=== PATIENT | male | born 1955 | race Caucasian/White ===

== ENCOUNTER 2018-08-16 18:07 | Inpatient (IN) | payer MEDICAID, OTHER ==
[2018-08-16] MEDS ORDERED: NITROGLYCERIN 50 MG/D5W (PMX) 250 ML (18:15)
[2018-08-16 18:25] LABS: ADD MAN DIFF? NO
[2018-08-16] MEDS: ENALAPRILAT 1.25 MG INJ IV (18:27)
[2018-08-16] MEDS: FUROSEMIDE 40 MG INJ IV (18:27)
[2018-08-16 18:28] LABS: WHITE BLOOD COUNT 10.2 10^3/ul (4.8-10.8)
[2018-08-16 18:28] LABS: BASOPHIL # 0.1 10^3/ul (0.0-0.1); EOSINOPHILS # 0.6 10^3/ul (0.0-0.5); EOSINOPHILS % 5.5 % (0.0-7.0); HEMATOCRIT 41.5 % (42.0-52.0); HEMOGLOBIN 13.1 g/dl (14.0-18.0); LYMPHOCYTES # 4.4 10^3/ul (0.8-2.9); LYMPHOCYTES % 42.9 % (15.0-51.0); MEAN CORPUSCULAR HGB CONC 31.6 g/dl (32.0-37.0); MEAN CORPUSCULAR VOLUME 95.2 fl (82.0-101.0); MEAN PLATELET VOLUME 11.5 fl (7.4-10.4); MONOCYTE # 0.6 10^3/ul (0.3-0.9); MONOCYTES % 6.2 % (0.0-11.0); NEUTROPHIL # 4.5 10^3/ul (1.6-7.5); NEUTROPHILS % 44.2 % (39.0-77.0); PLATELET COUNT 292 10^3/UL (140-415); RED BLOOD COUNT 4.36 10^6/ul (4.70-6.10); RED CELL DISTRIBUTION WIDTH 14.3 % (11.5-14.5)
[2018-08-16] MEDS: NITROGLYCERIN 50 MG/D5W (PMX) 250 ML IV ×2 (18:28→23:48)
[2018-08-16 18:50] LABS: ALANINE AMINOTRANSFERASE 18 IU/L (13-69); ALBUMIN 3.1 g/dl (3.3-4.9); ALBUMIN/GLOBULIN RATIO 1.06; ALKALINE PHOSPHATASE 102 IU/L (42-121); ANION GAP 12 (5-13); ASPARTATE AMINO TRANSFERASE 36 IU/L (15-46); BILIRUBIN,INDIRECT 0.1 mg/dl (0-1.1); BILIRUBIN,TOTAL 0.1 mg/dl (0.2-1.3); BLOOD UREA NITROGEN 30 mg/dl (7-20); CALCIUM 8.1 mg/dl (8.4-10.2); CARBON DIOXIDE 19 mmol/L (21-31); CHLORIDE 107 mmol/L (97-110); CREATININE 3.71 mg/dl (0.61-1.24); Estimated GFR 17 mL/min (>60); GLUCOSE 275 mg/dl (70-220); LIPASE 290 U/L (23-300); POTASSIUM 3.4 mmol/L (3.5-5.1); SODIUM 138 mmol/L (135-144)
[2018-08-16] MEDS: ASPIRIN 81 MG TAB PO (18:50)
[2018-08-16 18:54] LABS: INR 0.89; PROTIME 12.1 Sec (11.9-14.9); PT RATIO 0.9
[2018-08-16 18:56] LABS: PARTIAL THROMBOPLASTIN TIME 28.6 Sec (23.0-35.0)
[2018-08-16 19:01] LABS: TROPONIN-I 0.066 ng/ml (0.000-0.120)
[2018-08-16 19:10] LABS: AADO2 Arterial 343.8 mmHg (7.0-24.0); Allen Test ACCEPTAB; Arterial Base Excess -7.5 mmol/L (-3.0-3); Arterial Blood Gas Oxygen Sat 99.5 mmHG (95.0-98.0); Arterial COHb 0.3 % (0.0-3.0); Arterial Fraction of Oxyhgb 98.8 % (93.0-99.0); Arterial HCO3 18.9 mmol/L (22.0-26.0); Arterial MetHb 0.4 % (0.0-1.5); Arterial pCO2 41.3 mmhg (35-45); Blood Gas IEPAP 20/8; Blood Gas PS 12; MODE MASK - BIPAP; Site Right Radial
[2018-08-16] MEDS ORDERED: ALBUTEROL HFA 8 GM INHALER INH (21:30)
[2018-08-16] MEDS ORDERED: ONDANSETRON 4 MG INJ IV (21:30)
[2018-08-16] MEDS ORDERED: IPRATROPIUM (HFA) 12.9 GM INHALER INH (21:30)
[2018-08-16] MEDS ORDERED: DEXTROSE 50% 50 ML SYRINGE IV ×2 (22:00)
[2018-08-16] MEDS ORDERED: GLUCOSE GEL 15 GRAM TUBE BUCCAL (22:00)
[2018-08-16] MEDS ORDERED: GLUCOSE GEL 15 GRAM TUBE PO ×2 (22:00)
[2018-08-16] MEDS ORDERED: GLUCAGON 1 MG INJ IM (22:00)
[2018-08-16 22:47] LABS: Allen Test ACCEPTAB; Arterial Base Excess -6.2 mmol/L (-3.0-3); Arterial Blood Gas Oxygen Sat 96.7 mmHG (95.0-98.0); Arterial COHb 0.3 % (0.0-3.0); Arterial Fraction of Oxyhgb 96.2 % (93.0-99.0); Arterial HCO3 19.1 mmol/L (22.0-26.0); Arterial MetHb 0.2 % (0.0-1.5); Arterial pCO2 37.3 mmhg (35-45); MODE MASK - SIMPLE; Site Right Radial
[2018-08-17] MEDS: INSULIN ASPART [NOVOLOG] 3 ML PEN SC ×6 (01:21→21:00)
[2018-08-17] MEDS ORDERED: ACCU-CHEK XX (02:00)
[2018-08-17] MEDS: NITROGLYCERIN 50 MG/D5W (PMX) 250 ML IV ×3 (06:05→20:16)
[2018-08-17 06:37] LABS: ANION GAP 9 (5-13); BLOOD UREA NITROGEN 34 mg/dl (7-20); CALCIUM 8.1 mg/dl (8.4-10.2); CARBON DIOXIDE 22 mmol/L (21-31); CHLORIDE 112 mmol/L (97-110); CREATININE 4.23 mg/dl (0.61-1.24); Estimated GFR 14 mL/min (>60); GLUCOSE 123 mg/dl (70-220); MAGNESIUM 2.3 mg/dl (1.7-2.5); SODIUM 143 mmol/L (135-144)
[2018-08-17] MEDS: FAMOTIDINE 20 MG INJ IV (08:26)
[2018-08-17] MEDS: ASPIRIN (EC) 81 MG TAB PO (10:46)
[2018-08-17] MEDS: CLOPIDOGREL 75 MG TAB PO (10:46)
[2018-08-17] MEDS: ISOSORBIDE MONONITRATE(SR)60 MG TAB PO (10:53)
[2018-08-17] MEDS: HEPARIN 5,000 UNIT/1 ML VIAL SC ×2 (10:56→21:59)
[2018-08-17] MEDS ORDERED: LEVOFLOXACIN 750 MG TABLET NGT (12:00)
[2018-08-17] MEDS: LEVOFLOXACIN 500 MG TAB PO (13:58)
[2018-08-17] MEDS: LACTOBACILLUS RHAMNOSUS CAP PO ×2 (14:03→21:47)
[2018-08-17 14:28] LABS: HEMOGLOBIN A1C 6.3 % (0-5.9)
[2018-08-17 16:29] LABS: CREATININE,URINE RANDOM 182.96 mg/dl (20-370)
[2018-08-17 16:29] LABS: SODIUM,URINE RANDOM 23 mmol/L (30-90)
[2018-08-17] MEDS: ATORVASTATIN 80 MG TAB PO (21:48)
[2018-08-18] MEDS: NITROGLYCERIN 50 MG/D5W (PMX) 250 ML IV ×6 (00:36→22:57)
[2018-08-18 05:26] LABS: ADD MAN DIFF? NO
[2018-08-18 05:29] LABS: WHITE BLOOD COUNT 6.2 10^3/ul (4.8-10.8)
[2018-08-18 05:29] LABS: BASOPHIL # 0.1 10^3/ul (0.0-0.1); BASOPHILS % 1.1 % (0.0-2.0); EOSINOPHILS # 0.4 10^3/ul (0.0-0.5); HEMATOCRIT 29.2 % (42.0-52.0); HEMOGLOBIN 9.6 g/dl (14.0-18.0); LYMPHOCYTES # 1.2 10^3/ul (0.8-2.9); LYMPHOCYTES % 18.9 % (15.0-51.0); MEAN CORPUSCULAR HEMOGLOBIN 30.5 pg (29.0-33.0); MEAN CORPUSCULAR HGB CONC 32.9 g/dl (32.0-37.0); MEAN CORPUSCULAR VOLUME 92.7 fl (82.0-101.0); MEAN PLATELET VOLUME 11.9 fl (7.4-10.4); MONOCYTE # 0.7 10^3/ul (0.3-0.9); MONOCYTES % 10.5 % (0.0-11.0); NEUTROPHIL # 3.9 10^3/ul (1.6-7.5); NEUTROPHILS % 63.3 % (39.0-77.0); PLATELET COUNT 211 10^3/UL (140-415); RED BLOOD COUNT 3.15 10^6/ul (4.70-6.10); RED CELL DISTRIBUTION WIDTH 14.5 % (11.5-14.5)
[2018-08-18 05:52] LABS: ANION GAP 11 (5-13); BLOOD UREA NITROGEN 33 mg/dl (7-20); CARBON DIOXIDE 21 mmol/L (21-31); CHLORIDE 104 mmol/L (97-110); CHOL/HDL RATIO 4.9 RATIO; CHOLESTEROL 206 mg/dl (100-200); CREATININE 4.52 mg/dl (0.61-1.24); Estimated GFR 13 mL/min (>60); GLUCOSE 137 mg/dl (70-220); HDL CHOLESTEROL 42 mg/dl (30-78); LDL CHOLESTEROL,CALCULATED 133 mg/dl; MAGNESIUM 2.1 mg/dl (1.7-2.5); PHOSPHORUS 4.4 mg/dl (2.5-4.9); POTASSIUM 3.5 mmol/L (3.5-5.1); SODIUM 136 mmol/L (135-144); TRIGLYCERIDES 155 mg/dl (0-149)
[2018-08-18] MEDS: CLOPIDOGREL 75 MG TAB PO (09:15)
[2018-08-18] MEDS: FAMOTIDINE 20 MG TAB PO (09:16)
[2018-08-18] MEDS: ASPIRIN (EC) 81 MG TAB PO (09:16)
[2018-08-18] MEDS: ISOSORBIDE MONONITRATE(SR)60 MG TAB PO (09:16)
[2018-08-18] MEDS: LACTOBACILLUS RHAMNOSUS CAP PO ×2 (09:16→21:28)
[2018-08-18] MEDS: INSULIN ASPART [NOVOLOG] 3 ML PEN SC ×4 (09:17→21:00)
[2018-08-18] MEDS: HEPARIN 5,000 UNIT/1 ML VIAL SC ×2 (09:18→21:33)
[2018-08-18] MEDS: hydrALAzine 20 MG INJ IV ×2 (11:48→20:05)
[2018-08-18] MEDS: BUMETANIDE 1 MG INJ IV ×2 (15:08→18:02)
[2018-08-18 15:57] LABS: COLLECTION PERIOD 24 hrs; CREATININE CLEARANCE 17.7 mls/min (84.0-162.0); SCRET 4.52 mg/dl (0.61-1.24); VOLUME 750 ml/24hrs
[2018-08-18] MEDS: AMLODIPINE 5 MG TAB PO (17:00)
[2018-08-18] MEDS: ATORVASTATIN 80 MG TAB PO (21:28)
[2018-08-19] MEDS: NITROGLYCERIN 50 MG/D5W (PMX) 250 ML IV ×3 (04:07→17:12)
[2018-08-19 05:24] LABS: ADD MAN DIFF? NO
[2018-08-19 05:30] LABS: BASOPHIL # 0.1 10^3/ul (0.0-0.1); BASOPHILS % 0.9 % (0.0-2.0); EOSINOPHILS # 0.4 10^3/ul (0.0-0.5); EOSINOPHILS % 6.8 % (0.0-7.0); HEMOGLOBIN 9.5 g/dl (14.0-18.0); LYMPHOCYTES # 1.1 10^3/ul (0.8-2.9); LYMPHOCYTES % 18.7 % (15.0-51.0); MEAN CORPUSCULAR HEMOGLOBIN 30.9 pg (29.0-33.0); MEAN CORPUSCULAR HGB CONC 32.8 g/dl (32.0-37.0); MEAN CORPUSCULAR VOLUME 94.5 fl (82.0-101.0); MONOCYTE # 0.6 10^3/ul (0.3-0.9); MONOCYTES % 10.6 % (0.0-11.0); NEUTROPHIL # 3.6 10^3/ul (1.6-7.5); NEUTROPHILS % 62.8 % (39.0-77.0); PLATELET COUNT 198 10^3/UL (140-415); RED BLOOD COUNT 3.07 10^6/ul (4.70-6.10); RED CELL DISTRIBUTION WIDTH 14.3 % (11.5-14.5)
[2018-08-19 05:30] LABS: WHITE BLOOD COUNT 5.8 10^3/ul (4.8-10.8)
[2018-08-19 06:01] LABS: ANION GAP 8 (5-13); BLOOD UREA NITROGEN 38 mg/dl (7-20); CALCIUM 8.1 mg/dl (8.4-10.2); CARBON DIOXIDE 20 mmol/L (21-31); CHLORIDE 106 mmol/L (97-110); CREATININE 4.71 mg/dl (0.61-1.24); Estimated GFR 13 mL/min (>60); GLUCOSE 145 mg/dl (70-220); POTASSIUM 3.5 mmol/L (3.5-5.1); SODIUM 134 mmol/L (135-144)
[2018-08-19] MEDS: LEVOFLOXACIN 500 MG TAB PO (06:19)
[2018-08-19] MEDS: BUMETANIDE 1 MG INJ IV (06:20)
[2018-08-19] MEDS: INSULIN ASPART [NOVOLOG] 3 ML PEN SC ×4 (07:35→21:00)
[2018-08-19] MEDS: ASPIRIN (EC) 81 MG TAB PO (08:19)
[2018-08-19] MEDS: FAMOTIDINE 20 MG TAB PO (08:19)
[2018-08-19] MEDS: CLOPIDOGREL 75 MG TAB PO (08:19)
[2018-08-19] MEDS: LACTOBACILLUS RHAMNOSUS CAP PO ×2 (08:19→21:43)
[2018-08-19] MEDS: ISOSORBIDE MONONITRATE(SR)60 MG TAB PO ×2 (08:20→21:45)
[2018-08-19] MEDS: AMLODIPINE 5 MG TAB PO ×2 (08:21→21:43)
[2018-08-19] MEDS: HEPARIN 5,000 UNIT/1 ML VIAL SC ×2 (08:27→21:47)
[2018-08-19 09:40] LABS: ADD UMIC YES; UR ASCORBIC ACID NEGATIVE (NEGATIVE); UR BILIRUBIN (Dip) NEGATIVE (NEGATIVE); UR BLOOD (Dip) NEGATIVE (NEGATIVE); UR CLARITY SLIGHTLY CLOUDY (CLEAR); UR COLOR YELLOW (YELLOW); UR GLUCOSE (Dip) 2+ mg/dL (NEGATIVE); UR KETONES (Dip) NEGATIVE (NEGATIVE); UR LEUKOCYTE ESTERASE (Dip) NEGATIVE Leu/ul (NEGATIVE); UR NITRITE (Dip) NEGATIVE (NEGATIVE); UR RBC 22 /HPF (0-5); UR SPECIFIC GRAVITY (Dip) 1.012 (1.003-1.030); UR TOTAL PROTEIN (Dip) 3+ mg/dl (NEGATIVE); UR UROBILINOGEN (Dip) NEGATIVE (NEGATIVE); UR WBC 6 /HPF (0-5)
[2018-08-19] MEDS: hydrALAzine 20 MG INJ IV (16:05)
[2018-08-19] MEDS: ATORVASTATIN 80 MG TAB PO (21:44)
[2018-08-20] MEDS: NITROGLYCERIN 50 MG/D5W (PMX) 250 ML IV ×2 (00:39→06:01)
[2018-08-20 05:08] LABS: ADD MAN DIFF? NO
[2018-08-20 05:14] LABS: WHITE BLOOD COUNT 5.7 10^3/ul (4.8-10.8)
[2018-08-20 05:14] LABS: BASOPHIL # 0.1 10^3/ul (0.0-0.1); BASOPHILS % 1.2 % (0.0-2.0); EOSINOPHILS # 0.4 10^3/ul (0.0-0.5); EOSINOPHILS % 6.5 % (0.0-7.0); HEMATOCRIT 29.2 % (42.0-52.0); HEMOGLOBIN 9.5 g/dl (14.0-18.0); LYMPHOCYTES # 1.1 10^3/ul (0.8-2.9); LYMPHOCYTES % 19.6 % (15.0-51.0); MEAN CORPUSCULAR HEMOGLOBIN 30.2 pg (29.0-33.0); MEAN CORPUSCULAR HGB CONC 32.5 g/dl (32.0-37.0); MEAN CORPUSCULAR VOLUME 92.7 fl (82.0-101.0); MEAN PLATELET VOLUME 12.1 fl (7.4-10.4); MONOCYTE # 0.6 10^3/ul (0.3-0.9); MONOCYTES % 11.3 % (0.0-11.0); NEUTROPHIL # 3.5 10^3/ul (1.6-7.5); NEUTROPHILS % 61.2 % (39.0-77.0); PLATELET COUNT 195 10^3/UL (140-415); RED BLOOD COUNT 3.15 10^6/ul (4.70-6.10); RED CELL DISTRIBUTION WIDTH 14.1 % (11.5-14.5)
[2018-08-20 05:32] LABS: ANION GAP 7 (5-13); BLOOD UREA NITROGEN 41 mg/dl (7-20); CALCIUM 8.1 mg/dl (8.4-10.2); CARBON DIOXIDE 20 mmol/L (21-31); CHLORIDE 106 mmol/L (97-110); CREATININE 4.76 mg/dl (0.61-1.24); Estimated GFR 13 mL/min (>60); GLUCOSE 131 mg/dl (70-220); POTASSIUM 3.5 mmol/L (3.5-5.1); SODIUM 133 mmol/L (135-144)
[2018-08-20] MEDS: FAMOTIDINE 20 MG TAB PO (09:23)
[2018-08-20] MEDS: ASPIRIN (EC) 81 MG TAB PO (09:23)
[2018-08-20] MEDS: CLOPIDOGREL 75 MG TAB PO (09:24)
[2018-08-20] MEDS: AMLODIPINE 5 MG TAB PO ×2 (09:24→21:54)
[2018-08-20] MEDS: LACTOBACILLUS RHAMNOSUS CAP PO ×2 (09:24→21:56)
[2018-08-20] MEDS: HEPARIN 5,000 UNIT/1 ML VIAL SC ×2 (09:25→21:57)
[2018-08-20] MEDS: INSULIN ASPART [NOVOLOG] 3 ML PEN SC ×4 (09:33→21:00)
[2018-08-20] MEDS: ISOSORBIDE MONONITRATE(SR)60 MG TAB PO ×2 (09:40→21:52)
[2018-08-20] MEDS ORDERED: BUMETANIDE 1 MG INJ IV (10:00)
[2018-08-20] MEDS: BUMETANIDE 2 MG in DEXTROSE 5% 17 ML IV ×2 (11:13→17:47)
[2018-08-20] MEDS: hydrALAzine 20 MG INJ IV ×2 (11:52→18:11)
[2018-08-20] MEDS: IOHEXOL 14.3 MG(I)/ML (ADULT) BTL PO (15:30)
[2018-08-20 16:34] LABS: CREATINE KINASE 74 IU/L (23-200)
[2018-08-20 17:52] LABS: COMPLEMENT C3 103 mg/dl (88-165); COMPLEMENT C4 30 mg/dl (14-44)
[2018-08-20] MEDS ORDERED: BUMETANIDE 2 MG in DEXTROSE 5% 17 ML IV (18:00)
[2018-08-20 20:52] LABS: PTH CALCIUM 7.7 mg/dL (8.6-10.3)
[2018-08-20] MEDS: ATORVASTATIN 80 MG TAB PO (21:53)
[2018-08-21 05:03] LABS: ADD MAN DIFF? NO
[2018-08-21 05:14] LABS: WHITE BLOOD COUNT 5.7 10^3/ul (4.8-10.8)
[2018-08-21 05:14] LABS: BASOPHIL # 0.1 10^3/ul (0.0-0.1); BASOPHILS % 0.9 % (0.0-2.0); EOSINOPHILS # 0.4 10^3/ul (0.0-0.5); HEMATOCRIT 31.9 % (42.0-52.0); HEMOGLOBIN 10.4 g/dl (14.0-18.0); LYMPHOCYTES # 1.1 10^3/ul (0.8-2.9); MEAN CORPUSCULAR HEMOGLOBIN 30.4 pg (29.0-33.0); MEAN CORPUSCULAR HGB CONC 32.6 g/dl (32.0-37.0); MEAN CORPUSCULAR VOLUME 93.3 fl (82.0-101.0); MONOCYTE # 0.7 10^3/ul (0.3-0.9); MONOCYTES % 11.4 % (0.0-11.0); NEUTROPHIL # 3.5 10^3/ul (1.6-7.5); NEUTROPHILS % 61.3 % (39.0-77.0); PLATELET COUNT 212 10^3/UL (140-415); RED BLOOD COUNT 3.42 10^6/ul (4.70-6.10)
[2018-08-21 05:27] LABS: ANION GAP 5 (5-13); BLOOD UREA NITROGEN 44 mg/dl (7-20); CALCIUM 8.3 mg/dl (8.4-10.2); CARBON DIOXIDE 22 mmol/L (21-31); CHLORIDE 107 mmol/L (97-110); Estimated GFR 12 mL/min (>60); GLUCOSE 122 mg/dl (70-220); POTASSIUM 3.6 mmol/L (3.5-5.1); SODIUM 134 mmol/L (135-144)
[2018-08-21] MEDS: BUMETANIDE 2 MG in DEXTROSE 5% 17 ML IV ×2 (06:20→17:45)
[2018-08-21] MEDS: LEVOFLOXACIN 500 MG TAB PO (06:20)
[2018-08-21] MEDS: INSULIN ASPART [NOVOLOG] 3 ML PEN SC ×4 (07:35→21:00)
[2018-08-21] MEDS: ASPIRIN (EC) 81 MG TAB PO (08:13)
[2018-08-21] MEDS: FAMOTIDINE 20 MG TAB PO (08:13)
[2018-08-21] MEDS: CLOPIDOGREL 75 MG TAB PO (08:13)
[2018-08-21] MEDS: AMLODIPINE 5 MG TAB PO ×2 (08:14→20:58)
[2018-08-21] MEDS: HEPARIN 5,000 UNIT/1 ML VIAL SC ×2 (08:15→21:13)
[2018-08-21] MEDS: ISOSORBIDE MONONITRATE(SR)60 MG TAB PO ×2 (08:16→20:57)
[2018-08-21] MEDS: LACTOBACILLUS RHAMNOSUS CAP PO ×2 (08:16→20:56)
[2018-08-21 10:30] LABS: ADD UMIC YES; UR ASCORBIC ACID NEGATIVE (NEGATIVE); UR BILIRUBIN (Dip) NEGATIVE (NEGATIVE); UR BLOOD (Dip) NEGATIVE (NEGATIVE); UR CLARITY CLEAR (CLEAR); UR COLOR STRAW (YELLOW); UR GLUCOSE (Dip) 2+ mg/dL (NEGATIVE); UR KETONES (Dip) NEGATIVE (NEGATIVE); UR LEUKOCYTE ESTERASE (Dip) NEGATIVE Leu/ul (NEGATIVE); UR NITRITE (Dip) NEGATIVE (NEGATIVE); UR RBC 3 /HPF (0-5); UR TOTAL PROTEIN (Dip) 3+ mg/dl (NEGATIVE); UR UROBILINOGEN (Dip) NEGATIVE (NEGATIVE); UR WBC 20 /HPF (0-5)
[2018-08-21 10:53] LABS: CREATININE,URINE RANDOM 82.76 mg/dl (20-370)
[2018-08-21 11:06] LABS: PTH INTACT 144 pg/mL (14-64)
[2018-08-21] MEDS: ATORVASTATIN 80 MG TAB PO (20:57)
[2018-08-21] MEDS: POLYETHYLENE GLYCOL 17 GM PACKET PO (22:04)
[2018-08-21] MEDS: DOCUSATE SODIUM 100 MG CAP PO (22:06)
[2018-08-22 05:52] LABS: ADD MAN DIFF? NO
[2018-08-22 05:57] LABS: WHITE BLOOD COUNT 5.7 10^3/ul (4.8-10.8)
[2018-08-22 05:57] LABS: BASOPHIL # 0.1 10^3/ul (0.0-0.1); BASOPHILS % 0.9 % (0.0-2.0); EOSINOPHILS # 0.4 10^3/ul (0.0-0.5); EOSINOPHILS % 7.4 % (0.0-7.0); HEMATOCRIT 30.7 % (42.0-52.0); HEMOGLOBIN 10.1 g/dl (14.0-18.0); LYMPHOCYTES % 18.1 % (15.0-51.0); MEAN CORPUSCULAR HEMOGLOBIN 30.2 pg (29.0-33.0); MEAN CORPUSCULAR HGB CONC 32.9 g/dl (32.0-37.0); MEAN CORPUSCULAR VOLUME 91.9 fl (82.0-101.0); MONOCYTE # 0.7 10^3/ul (0.3-0.9); NEUTROPHIL # 3.5 10^3/ul (1.6-7.5); NEUTROPHILS % 61.4 % (39.0-77.0); PLATELET COUNT 196 10^3/UL (140-415); RED BLOOD COUNT 3.34 10^6/ul (4.70-6.10); RED CELL DISTRIBUTION WIDTH 13.6 % (11.5-14.5)
[2018-08-22 06:23] LABS: ANION GAP 4 (5-13); BLOOD UREA NITROGEN 47 mg/dl (7-20); CALCIUM 8.4 mg/dl (8.4-10.2); CARBON DIOXIDE 22 mmol/L (21-31); CHLORIDE 107 mmol/L (97-110); CREATININE 5.13 mg/dl (0.61-1.24); Estimated GFR 12 mL/min (>60); GLUCOSE 127 mg/dl (70-220); POTASSIUM 3.5 mmol/L (3.5-5.1); SODIUM 133 mmol/L (135-144)
[2018-08-22] MEDS: BUMETANIDE 2 MG in DEXTROSE 5% 17 ML IV (06:27)
[2018-08-22] MEDS: INSULIN ASPART [NOVOLOG] 3 ML PEN SC ×4 (08:00→21:00)
[2018-08-22] MEDS: ISOSORBIDE MONONITRATE(SR)60 MG TAB PO ×2 (08:49→20:57)
[2018-08-22] MEDS: LACTOBACILLUS RHAMNOSUS CAP PO ×2 (08:49→20:58)
[2018-08-22] MEDS: DOCUSATE SODIUM 100 MG CAP PO ×2 (08:50→20:56)
[2018-08-22] MEDS: CLOPIDOGREL 75 MG TAB PO (08:50)
[2018-08-22] MEDS: FAMOTIDINE 20 MG TAB PO (08:50)
[2018-08-22] MEDS: ASPIRIN (EC) 81 MG TAB PO (08:50)
[2018-08-22] MEDS: AMLODIPINE 5 MG TAB PO ×2 (08:50→20:57)
[2018-08-22] MEDS: POLYETHYLENE GLYCOL 17 GM PACKET PO (08:51)
[2018-08-22] MEDS: HEPARIN 5,000 UNIT/1 ML VIAL SC ×2 (08:53→21:08)
[2018-08-22 14:02] LABS: ANA SCREEN NEGATIVE (NEGATIVE)
[2018-08-22] MEDS: ATORVASTATIN 80 MG TAB PO (20:58)
[2018-08-23 02:39] LABS: CREATININE,URINE RANDOM 64.84 mg/dl (20-370)
[2018-08-23 03:33] LABS: PROTEIN/CREAT RATIO 8.62 RATIO
[2018-08-23] MEDS: LEVOFLOXACIN 500 MG TAB PO (06:16)
[2018-08-23] MEDS: INSULIN ASPART [NOVOLOG] 3 ML PEN SC ×4 (08:00→21:00)
[2018-08-23] MEDS: POLYETHYLENE GLYCOL 17 GM PACKET PO (08:41)
[2018-08-23] MEDS: CLOPIDOGREL 75 MG TAB PO (08:41)
[2018-08-23] MEDS: FAMOTIDINE 20 MG TAB PO (08:41)
[2018-08-23] MEDS: ASPIRIN (EC) 81 MG TAB PO (08:42)
[2018-08-23] MEDS: LACTOBACILLUS RHAMNOSUS CAP PO ×2 (08:42→20:39)
[2018-08-23] MEDS: DOCUSATE SODIUM 100 MG CAP PO ×2 (08:42→20:37)
[2018-08-23] MEDS: AMLODIPINE 5 MG TAB PO ×2 (08:43→20:39)
[2018-08-23] MEDS: ISOSORBIDE MONONITRATE(SR)60 MG TAB PO ×2 (08:43→20:38)
[2018-08-23 08:54] LABS: ADD MAN DIFF? NO
[2018-08-23 09:00] LABS: WHITE BLOOD COUNT 5.3 10^3/ul (4.8-10.8)
[2018-08-23 09:00] LABS: BASOPHIL # 0.1 10^3/ul (0.0-0.1); BASOPHILS % 1.1 % (0.0-2.0); EOSINOPHILS # 0.4 10^3/ul (0.0-0.5); HEMATOCRIT 31.2 % (42.0-52.0); HEMOGLOBIN 10.5 g/dl (14.0-18.0); LYMPHOCYTES # 0.9 10^3/ul (0.8-2.9); LYMPHOCYTES % 16.7 % (15.0-51.0); MEAN CORPUSCULAR HEMOGLOBIN 30.3 pg (29.0-33.0); MEAN CORPUSCULAR HGB CONC 33.7 g/dl (32.0-37.0); MEAN CORPUSCULAR VOLUME 89.9 fl (82.0-101.0); MEAN PLATELET VOLUME 12.1 fl (7.4-10.4); MONOCYTE # 0.6 10^3/ul (0.3-0.9); MONOCYTES % 10.6 % (0.0-11.0); NEUTROPHIL # 3.4 10^3/ul (1.6-7.5); NEUTROPHILS % 64.4 % (39.0-77.0); PLATELET COUNT 232 10^3/UL (140-415); RED BLOOD COUNT 3.47 10^6/ul (4.70-6.10); RED CELL DISTRIBUTION WIDTH 13.8 % (11.5-14.5)
[2018-08-23] MEDS: HEPARIN 5,000 UNIT/1 ML VIAL SC ×2 (09:00→20:59)
[2018-08-23 09:32] LABS: ANION GAP 9 (5-13); BLOOD UREA NITROGEN 51 mg/dl (7-20); CALCIUM 8.6 mg/dl (8.4-10.2); CARBON DIOXIDE 21 mmol/L (21-31); CHLORIDE 105 mmol/L (97-110); CREATININE 4.99 mg/dl (0.61-1.24); Estimated GFR 12 mL/min (>60); GLUCOSE 127 mg/dl (70-220); PHOSPHORUS 5.2 mg/dl (2.5-4.9); POTASSIUM 3.4 mmol/L (3.5-5.1); SODIUM 135 mmol/L (135-144)
[2018-08-23] MEDS: ATORVASTATIN 80 MG TAB PO (20:38)
[2018-08-24 05:52] LABS: ADD MAN DIFF? NO
[2018-08-24 06:04] LABS: BASOPHIL # 0.1 10^3/ul (0.0-0.1); EOSINOPHILS # 0.4 10^3/ul (0.0-0.5); EOSINOPHILS % 6.7 % (0.0-7.0); HEMATOCRIT 29.8 % (42.0-52.0); HEMOGLOBIN 9.9 g/dl (14.0-18.0); MEAN CORPUSCULAR HEMOGLOBIN 30.6 pg (29.0-33.0); MEAN CORPUSCULAR HGB CONC 33.2 g/dl (32.0-37.0); MEAN PLATELET VOLUME 11.8 fl (7.4-10.4); MONOCYTE # 0.7 10^3/ul (0.3-0.9); MONOCYTES % 11.7 % (0.0-11.0); NEUTROPHIL # 3.9 10^3/ul (1.6-7.5); NEUTROPHILS % 64.4 % (39.0-77.0); PLATELET COUNT 212 10^3/UL (140-415); RED BLOOD COUNT 3.24 10^6/ul (4.70-6.10); RED CELL DISTRIBUTION WIDTH 13.6 % (11.5-14.5)
[2018-08-24 06:38] LABS: ANION GAP 7 (5-13); BLOOD UREA NITROGEN 51 mg/dl (7-20); CALCIUM 8.4 mg/dl (8.4-10.2); CARBON DIOXIDE 23 mmol/L (21-31); CHLORIDE 104 mmol/L (97-110); CREATININE 5.08 mg/dl (0.61-1.24); Estimated GFR 12 mL/min (>60); GLUCOSE 126 mg/dl (70-220); POTASSIUM 3.2 mmol/L (3.5-5.1); SODIUM 134 mmol/L (135-144)
[2018-08-24] MEDS: POTASSIUM CHLORIDE (SR) 20 MEQ TAB PO (07:02)
[2018-08-24] MEDS: INSULIN ASPART [NOVOLOG] 3 ML PEN SC ×4 (08:00→21:00)
[2018-08-24] MEDS: LACTOBACILLUS RHAMNOSUS CAP PO ×2 (08:18→20:21)
[2018-08-24] MEDS: FAMOTIDINE 20 MG TAB PO (08:18)
[2018-08-24] MEDS: POLYETHYLENE GLYCOL 17 GM PACKET PO (08:18)
[2018-08-24] MEDS: ISOSORBIDE MONONITRATE(SR)60 MG TAB PO ×2 (08:18→20:21)
[2018-08-24] MEDS: DOCUSATE SODIUM 100 MG CAP PO ×2 (08:18→20:21)
[2018-08-24] MEDS: AMLODIPINE 5 MG TAB PO ×2 (08:19→20:22)
[2018-08-24] MEDS: ASPIRIN (EC) 81 MG TAB PO (08:19)
[2018-08-24] MEDS: HEPARIN 5,000 UNIT/1 ML VIAL SC ×2 (08:28→20:26)
[2018-08-24] MEDS: CLOPIDOGREL 75 MG TAB PO (08:28)
[2018-08-24] MEDS ORDERED: POTASSIUM CHLORIDE (SR) 20 MEQ TAB PO (11:30)
[2018-08-24] MEDS: ATORVASTATIN 80 MG TAB PO (20:21)
[2018-08-25] MEDS: LEVOFLOXACIN 500 MG TAB PO (05:51)
[2018-08-25 06:28] LABS: ADD MAN DIFF? NO
[2018-08-25 06:34] LABS: WHITE BLOOD COUNT 6.2 10^3/ul (4.8-10.8)
[2018-08-25 06:34] LABS: BASOPHIL # 0.1 10^3/ul (0.0-0.1); BASOPHILS % 1.1 % (0.0-2.0); EOSINOPHILS # 0.4 10^3/ul (0.0-0.5); EOSINOPHILS % 6.3 % (0.0-7.0); HEMATOCRIT 30.9 % (42.0-52.0); HEMOGLOBIN 10.2 g/dl (14.0-18.0); LYMPHOCYTES # 0.8 10^3/ul (0.8-2.9); LYMPHOCYTES % 13.2 % (15.0-51.0); MEAN CORPUSCULAR HEMOGLOBIN 30.2 pg (29.0-33.0); MEAN CORPUSCULAR VOLUME 91.4 fl (82.0-101.0); MEAN PLATELET VOLUME 11.6 fl (7.4-10.4); MONOCYTE # 0.6 10^3/ul (0.3-0.9); MONOCYTES % 8.8 % (0.0-11.0); NEUTROPHIL # 4.4 10^3/ul (1.6-7.5); NEUTROPHILS % 70.4 % (39.0-77.0); PLATELET COUNT 234 10^3/UL (140-415); RED BLOOD COUNT 3.38 10^6/ul (4.70-6.10); RED CELL DISTRIBUTION WIDTH 13.9 % (11.5-14.5)
[2018-08-25 07:04] LABS: ANION GAP 9 (5-13); BLOOD UREA NITROGEN 50 mg/dl (7-20); CALCIUM 8.7 mg/dl (8.4-10.2); CARBON DIOXIDE 22 mmol/L (21-31); CHLORIDE 104 mmol/L (97-110); Estimated GFR 12 mL/min (>60); GLUCOSE 137 mg/dl (70-220); POTASSIUM 3.6 mmol/L (3.5-5.1); SODIUM 135 mmol/L (135-144)
[2018-08-25] MEDS: INSULIN ASPART [NOVOLOG] 3 ML PEN SC ×4 (08:00→21:32)
[2018-08-25] MEDS: POLYETHYLENE GLYCOL 17 GM PACKET PO (09:00)
[2018-08-25] MEDS: ISOSORBIDE MONONITRATE(SR)60 MG TAB PO ×2 (09:35→21:16)
[2018-08-25] MEDS: DOCUSATE SODIUM 100 MG CAP PO ×2 (09:36→21:20)
[2018-08-25] MEDS: ASPIRIN (EC) 81 MG TAB PO (09:36)
[2018-08-25] MEDS: LACTOBACILLUS RHAMNOSUS CAP PO ×2 (09:36→21:16)
[2018-08-25] MEDS: FAMOTIDINE 20 MG TAB PO (09:36)
[2018-08-25] MEDS: AMLODIPINE 5 MG TAB PO ×2 (09:36→21:16)
[2018-08-25] MEDS: CLOPIDOGREL 75 MG TAB PO (09:36)
[2018-08-25] MEDS: HEPARIN 5,000 UNIT/1 ML VIAL SC ×2 (09:44→21:32)
[2018-08-25] MEDS: hydrALAzine 20 MG INJ IV (11:57)
[2018-08-25] MEDS: ATORVASTATIN 80 MG TAB PO (21:16)
[2018-08-26 05:21] LABS: ADD MAN DIFF? NO
[2018-08-26 05:24] LABS: WHITE BLOOD COUNT 6.8 10^3/ul (4.8-10.8)
[2018-08-26 05:24] LABS: BASOPHIL # 0.1 10^3/ul (0.0-0.1); EOSINOPHILS # 0.4 10^3/ul (0.0-0.5); EOSINOPHILS % 5.4 % (0.0-7.0); HEMATOCRIT 29.1 % (42.0-52.0); HEMOGLOBIN 9.6 g/dl (14.0-18.0); LYMPHOCYTES # 0.8 10^3/ul (0.8-2.9); MEAN CORPUSCULAR HEMOGLOBIN 30.4 pg (29.0-33.0); MEAN CORPUSCULAR VOLUME 92.1 fl (82.0-101.0); MEAN PLATELET VOLUME 11.7 fl (7.4-10.4); MONOCYTE # 0.7 10^3/ul (0.3-0.9); NEUTROPHIL # 4.9 10^3/ul (1.6-7.5); NEUTROPHILS % 71.3 % (39.0-77.0); PLATELET COUNT 208 10^3/UL (140-415); RED BLOOD COUNT 3.16 10^6/ul (4.70-6.10); RED CELL DISTRIBUTION WIDTH 13.8 % (11.5-14.5)
[2018-08-26 05:54] LABS: ANION GAP 7 (5-13); BLOOD UREA NITROGEN 52 mg/dl (7-20); CALCIUM 8.4 mg/dl (8.4-10.2); CARBON DIOXIDE 22 mmol/L (21-31); CHLORIDE 106 mmol/L (97-110); CREATININE 4.58 mg/dl (0.61-1.24); Estimated GFR 13 mL/min (>60); GLUCOSE 139 mg/dl (70-220); POTASSIUM 3.7 mmol/L (3.5-5.1); SODIUM 135 mmol/L (135-144)
[2018-08-26] MEDS: INSULIN ASPART [NOVOLOG] 3 ML PEN SC ×4 (08:00→20:59)
[2018-08-26] MEDS: POLYETHYLENE GLYCOL 17 GM PACKET PO ×2 (09:00→09:14)
[2018-08-26] MEDS: CLOPIDOGREL 75 MG TAB PO (09:11)
[2018-08-26] MEDS: FAMOTIDINE 20 MG TAB PO (09:12)
[2018-08-26] MEDS: LACTOBACILLUS RHAMNOSUS CAP PO ×2 (09:12→20:06)
[2018-08-26] MEDS: AMLODIPINE 5 MG TAB PO ×2 (09:13→20:05)
[2018-08-26] MEDS: ISOSORBIDE MONONITRATE(SR)60 MG TAB PO ×2 (09:13→20:05)
[2018-08-26] MEDS: ASPIRIN (EC) 81 MG TAB PO (09:13)
[2018-08-26] MEDS: DOCUSATE SODIUM 100 MG CAP PO ×2 (09:14→20:06)
[2018-08-26] MEDS: HEPARIN 5,000 UNIT/1 ML VIAL SC ×2 (09:21→20:57)
[2018-08-26] MEDS: ATORVASTATIN 80 MG TAB PO (20:06)
[2018-08-27 05:26] LABS: ADD MAN DIFF? NO
[2018-08-27 05:34] LABS: WHITE BLOOD COUNT 5.6 10^3/ul (4.8-10.8)
[2018-08-27 05:34] LABS: BASOPHIL # 0.1 10^3/ul (0.0-0.1); BASOPHILS % 0.9 % (0.0-2.0); EOSINOPHILS # 0.4 10^3/ul (0.0-0.5); EOSINOPHILS % 7.2 % (0.0-7.0); HEMATOCRIT 28.5 % (42.0-52.0); HEMOGLOBIN 9.5 g/dl (14.0-18.0); LYMPHOCYTES % 17.1 % (15.0-51.0); MEAN CORPUSCULAR HEMOGLOBIN 30.4 pg (29.0-33.0); MEAN CORPUSCULAR HGB CONC 33.3 g/dl (32.0-37.0); MEAN CORPUSCULAR VOLUME 91.3 fl (82.0-101.0); MEAN PLATELET VOLUME 11.9 fl (7.4-10.4); MONOCYTE # 0.6 10^3/ul (0.3-0.9); MONOCYTES % 10.1 % (0.0-11.0); NEUTROPHIL # 3.6 10^3/ul (1.6-7.5); NEUTROPHILS % 64.3 % (39.0-77.0); PLATELET COUNT 206 10^3/UL (140-415); RED BLOOD COUNT 3.12 10^6/ul (4.70-6.10); RED CELL DISTRIBUTION WIDTH 13.9 % (11.5-14.5)
[2018-08-27] MEDS: LEVOFLOXACIN 500 MG TAB PO (05:37)
[2018-08-27 06:07] LABS: ANION GAP 7 (5-13); BLOOD UREA NITROGEN 49 mg/dl (7-20); CALCIUM 8.5 mg/dl (8.4-10.2); CARBON DIOXIDE 22 mmol/L (21-31); CHLORIDE 106 mmol/L (97-110); CREATININE 4.81 mg/dl (0.61-1.24); Estimated GFR 12 mL/min (>60); GLUCOSE 154 mg/dl (70-220); POTASSIUM 3.6 mmol/L (3.5-5.1); SODIUM 135 mmol/L (135-144)
[2018-08-27] MEDS: INSULIN ASPART [NOVOLOG] 3 ML PEN SC ×4 (08:00→20:13)
[2018-08-27] MEDS: HEPARIN 5,000 UNIT/1 ML VIAL SC ×2 (08:30→20:41)
[2018-08-27] MEDS: ASPIRIN (EC) 81 MG TAB PO (08:32)
[2018-08-27] MEDS: DOCUSATE SODIUM 100 MG CAP PO ×2 (08:33→20:37)
[2018-08-27] MEDS: ISOSORBIDE MONONITRATE(SR)60 MG TAB PO ×2 (08:33→20:36)
[2018-08-27] MEDS: FAMOTIDINE 20 MG TAB PO (08:33)
[2018-08-27] MEDS: CLOPIDOGREL 75 MG TAB PO (08:33)
[2018-08-27] MEDS: AMLODIPINE 5 MG TAB PO ×2 (08:33→20:37)
[2018-08-27] MEDS: LACTOBACILLUS RHAMNOSUS CAP PO ×2 (08:33→20:47)
[2018-08-27] MEDS: POLYETHYLENE GLYCOL 17 GM PACKET PO (08:35)
[2018-08-27] MEDS: ATORVASTATIN 80 MG TAB PO (20:36)
[2018-08-28 06:17] LABS: ADD MAN DIFF? NO
[2018-08-28 06:21] LABS: BASOPHIL # 0.1 10^3/ul (0.0-0.1); EOSINOPHILS # 0.4 10^3/ul (0.0-0.5); EOSINOPHILS % 5.9 % (0.0-7.0); HEMATOCRIT 29.3 % (42.0-52.0); HEMOGLOBIN 9.6 g/dl (14.0-18.0); LYMPHOCYTES # 0.9 10^3/ul (0.8-2.9); LYMPHOCYTES % 15.4 % (15.0-51.0); MEAN CORPUSCULAR HEMOGLOBIN 30.5 pg (29.0-33.0); MEAN CORPUSCULAR HGB CONC 32.8 g/dl (32.0-37.0); MEAN PLATELET VOLUME 11.9 fl (7.4-10.4); MONOCYTE # 0.6 10^3/ul (0.3-0.9); MONOCYTES % 10.4 % (0.0-11.0); PLATELET COUNT 230 10^3/UL (140-415); RED BLOOD COUNT 3.15 10^6/ul (4.70-6.10)
[2018-08-28 06:50] LABS: ANION GAP 9 (5-13); BLOOD UREA NITROGEN 49 mg/dl (7-20); CALCIUM 8.5 mg/dl (8.4-10.2); CARBON DIOXIDE 21 mmol/L (21-31); CHLORIDE 106 mmol/L (97-110); CREATININE 4.82 mg/dl (0.61-1.24); Estimated GFR 12 mL/min (>60); GLUCOSE 162 mg/dl (70-220); POTASSIUM 3.7 mmol/L (3.5-5.1); SODIUM 136 mmol/L (135-144)
[2018-08-28] MEDS: INSULIN ASPART [NOVOLOG] 3 ML PEN SC ×2 (07:36→11:40)
[2018-08-28] MEDS: POLYETHYLENE GLYCOL 17 GM PACKET PO (08:31)
[2018-08-28] MEDS: FAMOTIDINE 20 MG TAB PO (08:32)
[2018-08-28] MEDS: AMLODIPINE 5 MG TAB PO (08:32)
[2018-08-28] MEDS: ASPIRIN (EC) 81 MG TAB PO (08:32)
[2018-08-28] MEDS: DOCUSATE SODIUM 100 MG CAP PO (08:32)
[2018-08-28] MEDS: CLOPIDOGREL 75 MG TAB PO (08:32)
[2018-08-28] MEDS: LACTOBACILLUS RHAMNOSUS CAP PO (08:32)
[2018-08-28] MEDS: ISOSORBIDE MONONITRATE(SR)60 MG TAB PO (08:33)
[2018-08-28] MEDS: HEPARIN 5,000 UNIT/1 ML VIAL SC (09:04)
== END 2018-08-28 17:45 | disposition home or self-care (01) | DRG 291 ==
LOC: 6WM 08-21 15:28 → E/R 18:07 → ICU 20:17
DX: I13.0 Hypertensive heart and chronic kidney disease with heart failure and stage 1 through stage 4 chronic kidney disease, or unspecified chronic kidney disease (principal); I50.31 Acute diastolic (congestive) heart failure; N17.0 Acute kidney failure with tubular necrosis; J96.21 Acute and chronic respiratory failure with hypoxia; I16.1 Hypertensive emergency; I25.10 Atherosclerotic heart disease of native coronary artery without angina pectoris; E66.9 Obesity, unspecified; E11.22 Type 2 diabetes mellitus with diabetic chronic kidney disease; E78.5 Hyperlipidemia, unspecified; N18.9 Chronic kidney disease, unspecified; R60.0 Localized edema; Z68.38 Body mass index [BMI] 38.0-38.9, adult; Z95.5 Presence of coronary angioplasty implant and graft; I25.2 Old myocardial infarction; Z91.14 Patient's other noncompliance with medication regimen; Z79.84 Long term (current) use of oral hypoglycemic drugs; Z79.02 Long term (current) use of antithrombotics/antiplatelets; Z79.82 Long term (current) use of aspirin
CPT/HCPCS: 36415; 36600; 71045; 74176; 76775; 80048; 80053; 80061; 81001; 81003; 82550; 82570; 82575; 82803; 82962; 83036; 83690; 83735; 83970; 84100; 84155; 84300; 84443; 84484; 85025; 85610; 85730; 86038; 86160; 87070; 87081; 87086; 89190; 93005; 93306; 93970; 94660; 96374; 96375; 97116; 97161; 97167; 97530; 99291-25

== ENCOUNTER 2018-10-28 20:55 | Inpatient (IN) | payer MEDICAID ==
[2018-10-28 21:25] LABS: ADD MAN DIFF? NO
[2018-10-28 21:27] LABS: ABNORMAL IP MESSAGE 1; BASOPHIL # 0.1 10^3/ul (0.0-0.1); BASOPHILS % 0.9 % (0.0-2.0); EOSINOPHILS # 0.5 10^3/ul (0.0-0.5); EOSINOPHILS % 5.9 % (0.0-7.0); HEMATOCRIT 29.9 % (42.0-52.0); HEMOGLOBIN 9.8 g/dl (14.0-18.0); LYMPHOCYTES # 0.6 10^3/ul (0.8-2.9); LYMPHOCYTES % 7.4 % (15.0-51.0); MEAN CORPUSCULAR HGB CONC 32.8 g/dl (32.0-37.0); MEAN CORPUSCULAR VOLUME 91.4 fl (82.0-101.0); MEAN PLATELET VOLUME 11.1 fl (7.4-10.4); MONOCYTE # 0.7 10^3/ul (0.3-0.9); MONOCYTES % 8.8 % (0.0-11.0); NEUTROPHIL # 5.8 10^3/ul (1.6-7.5); NEUTROPHILS % 76.7 % (39.0-77.0); PLATELET COUNT 281 10^3/UL (140-415); POSITIVE DIFF @See below; RED BLOOD COUNT 3.27 10^6/ul (4.70-6.10)
[2018-10-28 21:27] LABS: WHITE BLOOD COUNT 7.6 10^3/ul (4.8-10.8)
[2018-10-28] MEDS: DEXTROSE 5%-0.9% NACL 1,000 ML IV (21:29)
[2018-10-28 21:52] LABS: ALANINE AMINOTRANSFERASE 16 IU/L (13-69); ALBUMIN 2.8 g/dl (3.3-4.9); ALBUMIN/GLOBULIN RATIO 1.03; ALKALINE PHOSPHATASE 76 IU/L (42-121); ANION GAP 8 (5-13); ASPARTATE AMINO TRANSFERASE 15 IU/L (15-46); BILIRUBIN,INDIRECT 0.1 mg/dl (0-1.1); BILIRUBIN,TOTAL 0.1 mg/dl (0.2-1.3); BLOOD UREA NITROGEN 66 mg/dl (7-20); CALCIUM 7.7 mg/dl (8.4-10.2); CARBON DIOXIDE 19 mmol/L (21-31); CHLORIDE 110 mmol/L (97-110); CREATININE 4.94 mg/dl (0.61-1.24); Estimated GFR 12 mL/min (>60); GLUCOSE 55 mg/dl (70-220); LIPASE 290 U/L (23-300); POTASSIUM 3.7 mmol/L (3.5-5.1); SODIUM 137 mmol/L (135-144); TOTAL PROTEIN 5.5 g/dl (6.1-8.1)
[2018-10-28] MEDS: OCTREOTIDE 50 MCG INJ SC (22:48)
[2018-10-28] MEDS ORDERED: DEXTROSE 50% 50 ML SYRINGE (23:47)
[2018-10-28] MEDS: DEXTROSE 50% 50 ML SYRINGE IV (23:49)
[2018-10-29] MEDS ORDERED: ALBUTEROL HFA 8 GM INHALER INH (00:30)
[2018-10-29] MEDS ORDERED: ALBUTEROL/IPRATROPIUM (NEB) 3 ML AMP HHN (00:30)
[2018-10-29] MEDS ORDERED: ACETAMINOPHEN 325 MG TAB PO (00:30)
[2018-10-29] MEDS ORDERED: NACL 0.9% 3 ML SYG IV (00:30)
[2018-10-29] MEDS ORDERED: ONDANSETRON 4 MG INJ IV (00:30)
[2018-10-29] MEDS: AMLODIPINE 5 MG TAB PO ×3 (01:17→21:53)
[2018-10-29] MEDS: DEXTROSE 5%-0.45% NACL 1,000 ML IV ×2 (01:18→13:22)
[2018-10-29] MEDS: ISOSORBIDE MONONITRATE(SR)60 MG TAB PO ×2 (02:53→21:52)
[2018-10-29] MEDS: ACCU-CHEK XX ×5 (05:00→21:00)
[2018-10-29 06:20] LABS: ADD MAN DIFF? NO
[2018-10-29 06:28] LABS: WHITE BLOOD COUNT 7.3 10^3/ul (4.8-10.8)
[2018-10-29 06:28] LABS: BASOPHIL # 0.1 10^3/ul (0.0-0.1); EOSINOPHILS # 0.5 10^3/ul (0.0-0.5); EOSINOPHILS % 6.8 % (0.0-7.0); HEMATOCRIT 29.9 % (42.0-52.0); HEMOGLOBIN 9.8 g/dl (14.0-18.0); LYMPHOCYTES # 1.4 10^3/ul (0.8-2.9); LYMPHOCYTES % 18.6 % (15.0-51.0); MEAN CORPUSCULAR HEMOGLOBIN 29.9 pg (29.0-33.0); MEAN CORPUSCULAR HGB CONC 32.8 g/dl (32.0-37.0); MEAN CORPUSCULAR VOLUME 91.2 fl (82.0-101.0); MEAN PLATELET VOLUME 11.1 fl (7.4-10.4); MONOCYTE # 0.7 10^3/ul (0.3-0.9); MONOCYTES % 8.9 % (0.0-11.0); NEUTROPHIL # 4.7 10^3/ul (1.6-7.5); NEUTROPHILS % 64.4 % (39.0-77.0); PLATELET COUNT 277 10^3/UL (140-415); RED BLOOD COUNT 3.28 10^6/ul (4.70-6.10); RED CELL DISTRIBUTION WIDTH 15.2 % (11.5-14.5)
[2018-10-29 06:46] LABS: ALANINE AMINOTRANSFERASE 11 IU/L (13-69); ALBUMIN 2.6 g/dl (3.3-4.9); ALKALINE PHOSPHATASE 63 IU/L (42-121); ANION GAP 7 (5-13); ASPARTATE AMINO TRANSFERASE 12 IU/L (15-46); BILIRUBIN,INDIRECT 0.2 mg/dl (0-1.1); BILIRUBIN,TOTAL 0.2 mg/dl (0.2-1.3); BLOOD UREA NITROGEN 63 mg/dl (7-20); CALCIUM 7.7 mg/dl (8.4-10.2); CARBON DIOXIDE 18 mmol/L (21-31); CHLORIDE 112 mmol/L (97-110); CREATININE 4.85 mg/dl (0.61-1.24); Estimated GFR 12 mL/min (>60); GLUCOSE 127 mg/dl (70-220); MAGNESIUM 2.1 mg/dl (1.7-2.5); SODIUM 137 mmol/L (135-144); TOTAL PROTEIN 5.2 g/dl (6.1-8.1)
[2018-10-29] MEDS: hydrALAzine 20 MG INJ IV (06:56)
[2018-10-29] MEDS: CLOPIDOGREL 75 MG TAB PO (08:59)
[2018-10-29] MEDS: ASPIRIN (EC) 81 MG TAB PO (09:00)
[2018-10-29] MEDS ORDERED: ISOSORBIDE MONONITRATE(SR)60 MG TAB PO (09:00)
[2018-10-29] MEDS: HEPARIN 5,000 UNIT/1 ML VIAL SC ×2 (09:23→22:29)
[2018-10-29 16:46] LABS: HEMOGLOBIN A1C 5.8 % (0-5.9)
[2018-10-29] MEDS: ATORVASTATIN 80 MG TAB PO ×2 (21:00→21:52)
[2018-10-30] MEDS: ACCU-CHEK XX ×4 (01:00→13:00)
[2018-10-30 06:54] LABS: ADD MAN DIFF? NO
[2018-10-30 06:57] LABS: BASOPHIL # 0.1 10^3/ul (0.0-0.1); BASOPHILS % 1.3 % (0.0-2.0); EOSINOPHILS # 0.6 10^3/ul (0.0-0.5); EOSINOPHILS % 9.4 % (0.0-7.0); HEMATOCRIT 28.6 % (42.0-52.0); HEMOGLOBIN 9.3 g/dl (14.0-18.0); MEAN CORPUSCULAR HEMOGLOBIN 30.2 pg (29.0-33.0); MEAN CORPUSCULAR HGB CONC 32.5 g/dl (32.0-37.0); MEAN CORPUSCULAR VOLUME 92.9 fl (82.0-101.0); MEAN PLATELET VOLUME 11.2 fl (7.4-10.4); MONOCYTE # 0.6 10^3/ul (0.3-0.9); MONOCYTES % 9.9 % (0.0-11.0); NEUTROPHIL # 3.7 10^3/ul (1.6-7.5); NEUTROPHILS % 62.2 % (39.0-77.0); PLATELET COUNT 275 10^3/UL (140-415); RED BLOOD COUNT 3.08 10^6/ul (4.70-6.10); RED CELL DISTRIBUTION WIDTH 15.6 % (11.5-14.5)
[2018-10-30 07:27] LABS: ANION GAP 8 (5-13); BLOOD UREA NITROGEN 63 mg/dl (7-20); CALCIUM 7.6 mg/dl (8.4-10.2); CARBON DIOXIDE 19 mmol/L (21-31); CHLORIDE 108 mmol/L (97-110); CREATININE 5.01 mg/dl (0.61-1.24); Estimated GFR 12 mL/min (>60); GLUCOSE 130 mg/dl (70-220); PHOSPHORUS 6.7 mg/dl (2.5-4.9); POTASSIUM 4.2 mmol/L (3.5-5.1); SODIUM 135 mmol/L (135-144)
[2018-10-30] MEDS: CLOPIDOGREL 75 MG TAB PO (09:14)
[2018-10-30] MEDS: ISOSORBIDE MONONITRATE(SR)60 MG TAB PO (09:14)
[2018-10-30] MEDS: ASPIRIN (EC) 81 MG TAB PO (09:14)
[2018-10-30] MEDS: AMLODIPINE 5 MG TAB PO (09:15)
[2018-10-30] MEDS: HEPARIN 5,000 UNIT/1 ML VIAL SC (09:17)
== END 2018-10-30 14:19 | disposition home or self-care (01) | DRG 638 ==
LOC: TEL 22:00 → E/R 20:55
PROVIDERS: Internal Medicine
DX: E11.649 Type 2 diabetes mellitus with hypoglycemia without coma (principal); Z68.41 Body mass index [BMI] 40.0-44.9, adult; G93.40 Encephalopathy, unspecified; E66.01 Morbid (severe) obesity due to excess calories; I16.0 Hypertensive urgency; D64.9 Anemia, unspecified; E78.5 Hyperlipidemia, unspecified; E11.22 Type 2 diabetes mellitus with diabetic chronic kidney disease; N17.9 Acute kidney failure, unspecified; N18.9 Chronic kidney disease, unspecified; I12.9 Hypertensive chronic kidney disease with stage 1 through stage 4 chronic kidney disease, or unspecified chronic kidney disease; G47.33 Obstructive sleep apnea (adult) (pediatric); I25.10 Atherosclerotic heart disease of native coronary artery without angina pectoris; Z95.5 Presence of coronary angioplasty implant and graft; T38.3X5A Adverse effect of insulin and oral hypoglycemic [antidiabetic] drugs, initial encounter
CPT/HCPCS: 36415; 71045; 80048; 80053; 82962; 83036; 83690; 83735; 84100; 84484; 85025; 87081; 93005; 93970; 99285-25